=== PATIENT | male | born 1955 | race Caucasian/White ===

== ENCOUNTER 2025-03-09 07:52 | Day surgery (SDC) | payer MEDICARE, OTHER ==
[2025-03-09] MEDS ORDERED: Sodium Chloride 0.9% 10 ML Syringe FLUSH PRN (08:00)
[2025-03-09] MEDS: Lactated Ringers 1,000 ML IV SCH (08:16)
[2025-03-09] MEDS ORDERED: Propofol 200 MG/20 ML SDV ONE (08:45)
[2025-03-09] MEDS ORDERED: Midazolam 1 MG/ML 2 ML SDV ONE (08:45)
== END 2025-03-09 10:23 | disposition home or self-care (01) ==
LOC: LL.SDS 07:52
PROVIDERS: ATTEND Surgery
DX: Z12.11 Encounter for screening for malignant neoplasm of colon (principal); K51.40 Inflammatory polyps of colon without complications; K63.89 Other specified diseases of intestine; K57.30 Diverticulosis of large intestine without perforation or abscess without bleeding; I12.9 Hypertensive chronic kidney disease with stage 1 through stage 4 chronic kidney disease, or unspecified chronic kidney disease; N18.31 Chronic kidney disease, stage 3a; E78.00 Pure hypercholesterolemia, unspecified; Z79.82 Long term (current) use of aspirin; Z87.891 Personal history of nicotine dependence; Z79.899 Other long term (current) drug therapy; Z86.0100 Personal history of colon polyps, unspecified
CPT/HCPCS: 45385; 88305; J2250; J2704; J7120